=== PATIENT | male | born 1950 | race Caucasian/White ===

== ENCOUNTER → 2016-11-25 | Outpatient (CLI) | payer OTHER ==
[2015-02-17 15:00] VITALS: BP 125/75
--- NOTE | 2016-11-25 10:34 | RAD ---
APPROVED REPORT Patient Location: OUT-PATIENT Laterality:Bilateral Indications CVA/TIA: carotid occlusion Doppler Spectral Velocity Analysis Right Left pCCA 79/13 cm/spCCA 63/10 cm/s mCCA 73/18 cm/smCCA 52/9 cm/s dCCA 76/19 cm/sdCCA 56/11 cm/s Bulb 61/19 cm/sBulb 58/12 cm/s ECA 108/ cm/sECA 66/ cm/s pICA 64/13 cm/spICA John 57/17 cm/smICA dICA 60/23 cm/sdICA Vert. 52/ cm/sVert. 36/ cm/s Subcl. 95/ cm/sSubcl. 119/ cm/s ICA/CCA 0.81ICA/CCA Findings Bilateral avila scale images of the common carotid, external and internal carotids was obtained. There is mild diffuse intimal hyperplasia the bilateral common carotid vessels with mild plaque at the bul bs. The left internal caortid artery is occlued at its origin. The left vertebral artery appears to b e occluded or severely diseased based on spectral waveforms. No other significant disease is identifi ed bilaterally. Critical Notification Critical Value: No <Conclusion> 1. Occluded left internal carotid artery, and likely vertebral artery. 2. Antegrade right vertebral velocity.
== END | disposition home or self-care (01) ==
LOC: US 09:15
PROVIDERS: ATTEND Internal Medicine Cardiovascular Disease
DX: I63.9 Cerebral infarction, unspecified (principal); I65.22 Occlusion and stenosis of left carotid artery
CPT/HCPCS: 93880

== ENCOUNTER → 2017-06-03 | Outpatient (CLI) | payer OTHER ==
[2015-02-17 15:00] VITALS: BP 125/75
--- NOTE | 2017-06-03 16:01 | EKG ---
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
== END | disposition home or self-care (01) ==
LOC: EKG 15:40
PROVIDERS: ATTEND Psychiatry & Neurology Neurology
DX: I49.49 Other premature depolarization (principal)
CPT/HCPCS: 93005

== ENCOUNTER → 2017-12-18 | Outpatient (CLI) | payer OTHER ==
[~2017-12-18] MED LIST: REGADENOSON 0.4 MG/5 ML DISP.SYRIN. IV
[2017-12-18] MEDS: REGADENOSON 0.4 MG/5 ML DISP.SYRIN. IV (09:50)
== END | disposition home or self-care (01) ==
LOC: NM 07:57
DX: I48.91 Unspecified atrial fibrillation (principal); I10 Essential (primary) hypertension; Z79.01 Long term (current) use of anticoagulants; Z87.891 Personal history of nicotine dependence
CPT/HCPCS: 78452; 93017; 96374; 96375; 96376; A9500; J2785

== ENCOUNTER → 2018-05-05 | Outpatient (CLI) | payer OTHER ==
[2018-05-05] MEDS: IOHEXOL 300 MG/ML 100ML VIAL. IV (09:43)
== END | disposition home or self-care (01) ==
LOC: KCIC CT 08:46
DX: N40.1 Benign prostatic hyperplasia with lower urinary tract symptoms (principal); R31.29 Other microscopic hematuria; I10 Essential (primary) hypertension; E78.5 Hyperlipidemia, unspecified; Z87.891 Personal history of nicotine dependence
CPT/HCPCS: 74178; Q9967

== ENCOUNTER → 2018-10-21 | Outpatient (CLI) | payer OTHER ==
[2015-02-17 15:00] VITALS: BP 125/75
--- NOTE | 2018-10-21 16:09 | RAD ---
Carotid ultrasound, 10/21/2018: HISTORY: Carotid artery disease Duplex evaluation of the carotid arteries and neck was performed including grayscale, color-flow and spectral Doppler analysis. On the right, there is moderate plaquing at the carotid bifurcation. The plaques are partially calcified. The peak systolic velocity in the right internal carotid artery is 86 cm per sec with an end-diastolic velocity of 23 cm/s and an internal carotid to common carotid artery ratio of 1.1. These Doppler findings suggest luminal narrowing in the 0-50 percent diameter range. On the left, there is chronic occlusion of the internal carotid artery at the bifurcation. This was also evident on the previous study of 11/25/2016. The external carotid artery is widely patent. Both vertebral arteries in the neck are well visualized on today's study and are patent with normal antegrade flow. IMPRESSION: 1. 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 2. Moderate atherosclerotic plaquing at the right carotid bifurcation with underlying narrowing of the proximal internal carotid artery in the 0-50 percent diameter range. Note: Stenosis calculations for CT, MRA and conventional angiography are based upon determination of the distal ICA diameter in accordance with the NASCET methodology. Stenosis calculations for Doppler studies are derived from validated velocity criteria which are known to correlate with NASCET methodology of determining stenosis. Electronically signed by: Lico Nino MD (10/21/2018 4:04 PM) [facility]
== END | disposition home or self-care (01) ==
LOC: US 12:15
DX: I65.23 Occlusion and stenosis of bilateral carotid arteries (principal)
CPT/HCPCS: 93880

== ENCOUNTER 2021-03-25 20:32 | Emergency (ER) | payer MEDICARE, OTHER ==
[~2021-03-25] VITALS: Ht 172.7 cm; Wt 81.8 kg
[2021-03-25 22:07] LABS: BASO # 0.1 x10^3/uL (0.0-0.2); BASO % 1 % (0-3); EOS # 0.2 x10^3/uL (0.0-0.7); EOS % 2 % (0-3); HEMATOCRIT 38.7 % (39.0-53.0); HEMOGLOBIN 13.4 g/dL (13.0-17.5); LYMPH # 1.2 x10^3/uL (1.0-4.8); LYMPH % 13 % (24-48); MEAN CORPUSCULAR HEMOGLOBIN 29 pg (25-35); MEAN CORPUSCULAR HGB CONC 35 g/dL (31-37); MEAN CORPUSCULAR VOLUME 85 fL (79-100); MONO # 0.9 x10^3/uL (0.0-1.1); MONO % 10 % (0-9); NEUT # 7.2 x10^3/uL (1.8-7.7); NEUT % 75 % (31-73); PLATELET COUNT 285 x10^3/uL (140-400); RED BLOOD COUNT 4.54 x10^6/uL (4.30-5.70); RED CELL DISTRIBUTION WIDTH 14.4 % (11.5-14.5); WHITE BLOOD COUNT 9.6 x10^3/uL (4.0-11.0)
[2021-03-25 22:08] LABS: BILIRUBIN,URINE NEGATIVE (NEG); CLARITY,URINE CLEAR; COLOR,URINE YELLOW; NITRITE,URINE NEGATIVE (NEG); PH,URINE 5.5 (<5.0-8.0); PROTEIN,URINE NEGATIVE (NEG-TRACE); UROBILINOGEN,URINE 0.2 mg/dL (0.2 mg/dL)
--- NOTE | 2021-03-25 22:11 | PHYS DOC ---
Past Medical History Past Medical History: No Pertinent History Past Surgical History: No Surgical History Smoking Status: Unknown if ever smoked Alcohol Use: None Drug Use: None General Adult EDM: Chief Complaint: DIZZY/LIGHT HEADED HPI: HPI: Patient is a 70 year old male who presents with this morning 9:00 begin feeling lightheaded. It is worse with position change. He states that he does not have dizziness. He denies abdominal pain, chest pain, shortness of breath, syncope, numbness or tingling, focal weakness, nausea, vomiting, diarrhea, back pain, fal l, headache, vision change. He states his history consist of hypertension, A. fib which she is on Eliquis, mini strokes, left carotid occlusion. Review of Systems: Review of Systems: Constitutional: Denies fever or chills. [] Eyes: Denies change in visual acuity. [] HENT: Denies nasal congestion or sore throat. [] Respiratory: Denies cough or shortness of breath. [] Cardiovascular: Denies chest pain or edema. [] GI: Denies abdominal pain, nausea, vomiting, bloody stools or diarrhea. [] : Denies dysuria. [] Musculoskeletal: Denies back pain or joint pain. [] Integument: Denies rash. [] Neurologic: Denies headache, focal weakness or sensory changes. + Lightheaded [] Endocrine: Denies polyuria or polydipsia. [] Lymphatic: Denies swollen glands. [] Psychiatric: Denies depression or anxiety. [] Heart Score: C/O Chest Pain: No HEART Score for Chest Pain: HEART Score for Chest Pain Response (Comments) Value History Slighlty/Non-Suspicious 0 ECG Normal 0 Age > 65 2 Risk Factors 1 or 2 Risk Factors 1 Troponin < Normal Limit 0 Total 3 Risk Factors: Risk Factors: DM, Current or recent (<one month) smoker, HTN, HLP, family history of CAD, obesity. Risk Scores: Score 0 - 3: 2.5% MACE over next 6 weeks - Discharge Home Score 4 - 6: 20.3% MACE over next 6 weeks - Admit for Clinical Observation Score 7 - 10: 72.7% MACE over next 6 weeks - Early Invasive Strategies Allergies: Allergies: Allergies Coded Allergies Type Severity Reaction Last Updated Verified No Known Drug Allergies 02/14/15 No Physical Exam: PE: Constitutional: Well developed, well nourished, no acute distress, non-toxic appearance. [] HENT: Normocephalic, atraumatic, bilateral external ears normal, oropharynx moist, no oral exudates, nose normal. [] Eyes: PERRLA, EOMI, conjunctiva normal, no discharge. [] Neck: Normal range of motion, no tenderness, supple, no stridor. [] Cardiovascular:Heart rate regular rhythm, no murmur [] Lungs & Thorax: Bilateral breath sounds clear to auscultation [] Abdomen: Bowel sounds normal, soft, no tenderness, no masses, no pulsatile masses. [] Skin: Warm, dry, no erythema, no rash. [] Back: No tenderness, no CVA tenderness. [] Extremities: No tenderness, no cyanosis, no clubbing, ROM intact, no edema. [] Neurologic: Alert and oriented X 3, normal motor function, normal sensory function, no focal deficits noted. [] Psychologic: Affect normal, judgement normal, mood normal. [] Normal physical exam Current Patient Data: Vital Signs: Vital Signs Date Time Temp Pulse Resp B/P (MAP) Pulse Ox O2 Delivery O2 Flow Rate FiO2 03/25/21 20:45 97.7 88 16 160/65 (96) 94 Room Air 97.7 EKG: EK and read by Dr. Garvin is sinus rhythm and no STEMI Radiology/Procedures: Radiology/Procedures: [] Impression: [facility] [address] [place], [place] [id number] IMAGING REPORT Signed PATIENT: ARCELIA RUBIN ACCOUNT: [id number] : 1950 LOCATION: ER AGE: 70 SEX: M EXAM STATUS: REG ER ORD. PHYSICIAN: NABOR CLAYTON APRN REASON: dizziness PROCEDURE: CT HEAD WO CONTRAST Exam Date: 03/25/2021 9:[address] HEAD/BRAIN WO Indication: Reason: dizziness / Spl. Instructions: / History: . TECHNIQUE: Head CT was performed without intravenous contrast. One or more of the following dose reduction techniques were utilized: *Automated exposure control (AEC) *Adjustment of mA and/or kV according to patient size *Use of iterative reconstruction technique *CT scan done according to ALARA, or ALARA/IMAGE GENTLY FINDINGS: The ventricles and sulci are prominent consistent with cerebral volume loss. Patchy ill-defined low attenuation areas in the subcortical and periventricular white matter bilaterally are consistent with microvascular disease. There is no evidence of acute intracranial hemorrhage, extra-axial collection, mass effect, midline shift, or acute territorial infarct. No lesion of the skull base or the calvarium is seen. The visualized paranasal sinuses, mastoid air cells and orbits are normal in appearance. IMPRESSION: No evidence for acute intracranial abnormality. Volume loss and microvascular disease. Electronically signed by: Angela Kenney MD (03/25/2021 10:12 PM) [facility] DICTATED and SIGNED BY: ANGELA KENNEY MD DATE: 03/25/21 [id number] 0 Course & Med Decision Making: Course & Med Decision Making Pertinent Labs and Imaging studies reviewed. (See chart for details) See HPI. Alert and oriented x4. Ambulatory with a steady gait. Skin pink warm and dry. Speaks in full clear sentences. NIH is 0. EKG is a sinus rhythm with no STEMI. Orthostatics include layin/81, 70; sitting 165/72, 89; standing 179/99, 76. Patient is given a liter of normal saline. Qtjwac-frik-kjnfti intact. No extremity edema. CT shows no acute findings. Patient remained stable. He received a liter of fluid. Chest x-ray read by Dr. Garvin is no acute findings. I have given my advice to the patient as he should stay for admission for further work-up and evaluation and observation. Patient and are adamant that they leave and go home. They state their understanding upon me educating them about worsening of condition up to and disability. They state their understanding of when they should come back to the emergency room. They also state their understanding that they must follow-up with primary care tomorrow. I have gone over this patient with Dr. Garvin who states to not to sign them out AMA but make sure they understand the risk factors. NIH remains at a 0. [] Dragon Disclaimer: Dragon Disclaimer: This electronic medical record was generated, in whole or in part, using a voice recognition dictation system. NIHSS Stroke Scale NIH Stroke Scale: NIH Stroke Scale Response (Comments) Value Level of Consciousness: 0 Alert/Responsive 0 LOC Questions: 0 Answers both correctly 0 LOC Commands: 0 Performs both tasks 0 Best Gaze: 0 Normal 0 Visual: 0 No visual loss 0 Facial Palsy: 0 Normal, symmetrical 0 Motor - Left Arm 0 No drift 0 Motor - Right Arm 0 No drift 0 Motor - Left Leg 0 No drift 0 Motor: Right Leg 0 No drift 0 Limb Ataxia: 0 Absent 0 Sensory: 0 No loss 0 Best Language: 0 Normal 0 Dysathria: 0 Normal 0 Extinction and Inattention: 0 Normal 0 Total 0 Departure Departure Impression: Primary Impression: Orthostatic lightheadedness Disposition: 01 HOME / SELF CARE / HOMELESS Condition: STABLE Referrals: YULIYA OSBORN MD (PCP) Patient Instructions: Orthostatic Hypotension Additional Instructions: Follow-up with your primary care provider in the morning. If your symptoms worsen call 911 or come back to the emergency room. Drink plenty of fluids. NABOR CLAYTON APRN Mar 25, 2021 22:11
[2021-03-25 22:14] LABS: AMPHETAMINE/METHAMPHETAMINE NEG (NEG); BARBITURATES NEG (NEG); BENZODIAZEPINES NEG (NEG); CANNABINOIDS NEG (NEG); COCAINE NEG (NEG); METHADONE NEG (NEG); OPIATES NEG (NEG); PHENCYCLIDINE NEG (NEG)
[2021-03-25 22:15] LABS: HYALINE CASTS, URINE FEW /HPF
[2021-03-25] MEDS ORDERED: IV NORMAL SALINE 1000ML BAG 1,000 ML IV ONE (22:15)
--- NOTE | 2021-03-25 22:15 | RAD ---
Exam Date: 03/25/2021 9:[address] HEAD/BRAIN WO Indication: Reason: dizziness / Spl. Instructions: / History: . TECHNIQUE: Head CT was performed without intravenous contrast. One or more of the following dose re duction techniques were utilized: *Automated exposure control (AEC) *Adjustment of mA and/or kV according to patient size *Use of iterative reconstruction technique *CT scan done according to ALARA, or ALARA/IMAGE GENTLY FINDINGS: The ventricles and sulci are prominent consistent with cerebral volume loss. Patchy ill-defined low attenuation areas in the subcortical and periventricular white matter bilaterally are consistent with microvascular disease. There is no evidence of acute intracranial hemorrhage, extra-axial collecti on, mass effect, midline shift, or acute territorial infarct. No lesion of the skull base or the calv arium is seen. The visualized paranasal sinuses, mastoid air cells and orbits are normal in appearanc e. IMPRESSION: No evidence for acute intracranial abnormality. Volume loss and microvascular disease. Electronically signed by: Korey Kenney MD (03/25/2021 10:12 PM) [facility]
[2021-03-25 22:16] LABS: BACTERIA,URINE 0 /HPF (0-FEW)
[2021-03-25 22:19] LABS: CREATININE 1.4 mg/dL (0.7-1.3); POTASSIUM 3.6 mmol/L (3.5-5.1)
[2021-03-25 22:25] LABS: ALBUMIN 3.9 g/dL (3.4-5.0); ALBUMIN/GLOBULIN RATIO 1.1 (1.0-1.7); TOTAL BILIRUBIN 0.3 mg/dL (0.2-1.0); TOTAL PROTEIN 7.5 g/dL (6.4-8.2)
[2021-03-25 23:06] VITALS: BP 160/70
--- NOTE | 2021-03-26 02:15 | RAD ---
XR CHEST 1V INDICATION: Reason: dizziness / Spl. Instructions: / History: . COMPARISON STUDY: None. FINDINGS: Lungs: Normal lung volume. No pulmonary mass or consolidation. The tracheobronchial tree and hilar st ructures are normal. Pleura: No pleural effusion or pneumothorax. Heart and Mediastinum: The cardiomediastinal silhouette is normal. Atherosclerosis of the thoracic ao rta. IMPRESSION: No acute cardiopulmonary process. Electronically signed by: Andrew Pelletier MD (03/26/2021 2:13 AM) [facility]
--- NOTE | 2021-03-26 06:19 | EKG ---
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
== END 2021-03-26 00:03 | disposition home or self-care (01) ==
LOC: ER 20:32
DX: R42 Dizziness and giddiness (principal); I10 Essential (primary) hypertension; I48.91 Unspecified atrial fibrillation
CPT/HCPCS: 36415; 70450; 71045; 80053; 80307; 81001; 84484; 85025; 87086; 93005; 96360; 99285; G0480; J7030

== ENCOUNTER 2021-06-06 09:17 | Day surgery (SDC) | payer MEDICARE ==
[~2021-06-06] VITALS: Ht 172.7 cm; Wt 84.5 kg
[~2021-06-06 09:17] MED LIST changes: +APIX5TAB PO; +ASPI-630 PO; +ATOR10TA60 PO; +BENZOCAINE ONE 20% MUCOSAL SPRAY. MM; +DILT180C29 PO; +FLEC100T PO; +HYDROmorphone 2 MG/ML VIAL IVP PRN; +IV RINGERS,LACTATED 1000ML 1,000 ML IV SCH; +LIDOCAINE 2% JELLY 6ML IN APPLICATOR. MM ONE; +LIDOCAINE 2% VISCOUS 15 ML SOLUTION. SWSW ONE; +LOSA-73 PO; +MORPHINE SULFATE 2 MG/ML INJ. IVP PRN; +PROCHLORPERAZINE 10 MG/2 ML VIAL. IVP PRN; -REGADENOSON 0.4 MG/5 ML DISP.SYRIN. IV; +TAMS0.4C97 PO; +fentaNYL PF VIAL 100 MCG/2 ML VIAL IVP PRN
[2021-06-06 09:50] VITALS: BP 161/71
--- NOTE | 2021-06-06 10:00 | EKG ---
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
[2021-06-06 10:14] LABS: HEMATOCRIT 39.1 % (39.0-53.0); HEMOGLOBIN 13.5 g/dL (13.0-17.5); RED BLOOD COUNT 4.55 x10^6/uL (4.30-5.70); RED CELL DISTRIBUTION WIDTH 14.2 % (11.5-14.5); WHITE BLOOD COUNT 7.7 x10^3/uL (4.0-11.0)
[2021-06-06 10:25] LABS: CALCIUM 9.3 mg/dL (8.5-10.1); CREATININE 1.4 mg/dL (0.7-1.3); GFR 49.8; POTASSIUM 3.7 mmol/L (3.5-5.1)
[2021-06-06] MEDS ORDERED: LIDOCAINE 2% PF 5 ML VIAL. ONE (10:27)
[2021-06-06] MEDS ORDERED: PROPOFOL 10 MG/ML (20ML) VIAL. IV ONE (10:27)
[2021-06-06] MEDS ORDERED: LIDOCAINE 2% TOPICAL JELLY 30GM TUBE. TP ONE (10:58)
[2021-06-06 11:45] VITALS: BP 120/48
--- NOTE | 2021-06-06 15:24 | CARD ---
MR#: [id number] Date of Study: 06/06/2021 Ordering Physician: RAGHU CALIX, Referring Physician: RAGHU CALIX, Tech: Kristina Camp [facility] APPROVED REPORT EXAM: Two-dimensional and M-mode echocardiogram with Doppler and color Doppler. INDICATION Atrial Fibrillation Pre Ablation RISK FACTORS Hypertension Hyperlipidemia Reason For Test : Rule out Intracardiac Thrombus. PROCEDURE After obtaining informed consent, patient underwent transesophageal echo in the PACU. Type of Sedation : General Anesthesia Sedation was administered by Jo Hernandez. Sedation was achieved with Propofol 220mg intravenously. Sedation was achieved with Lidocaine 100mg intravenously. Transesophageal probe was inserted and advanced into esophagus by Raghu Calix MD. The JUANA was performed without complications. Throughout the procedure, the blood pressure, pulse oximetry, cardiac rhythm, and rate were monitored . The patient tolerated the procedure without adverse effects. Recovery from general anesthesia was une ventful and vital signs were stable. LEFT VENTRICLE The left ventricle is normal size. There is mild concentric left ventricular hypertrophy. The left ve ntricular systolic function is normal and the ejection fraction is within normal range. The Ejection Fraction is 50-55%. There is normal LV segmental wall motion. RIGHT VENTRICLE The right ventricle is normal size. There is normal right ventricular wall thickness. The right ventr icular systolic function is normal. ATRIA The left atrium size is normal. The right atrium size is normal. The interatrial septum is intact wit h no evidence for an atrial septal defect or patent foramen ovale as noted on 2-D or Doppler imaging. There is no thrombus noted in the left atrial appendage. AORTIC VALVE The aortic valve is normal in structure and function. Doppler and Color Flow revealed no significant aortic regurgitation. There is no significant aortic valvular stenosis. There is no aortic valvular v egetation. MITRAL VALVE The mitral valve is normal in structure and function. There is no mitral valve stenosis. Doppler and Color Flow revealed trace mitral valve regurgitation noted. TRICUSPID VALVE The tricuspid valve is normal in structure and function. Doppler and Color Flow revealed trace tricus pid regurgitation. There is no tricuspid valve stenosis. PULMONIC VALVE The pulmonary valve is normal in structure and function. Doppler and Color Flow revealed trace pulmon ic valvular regurgitation. GREAT VESSELS The aortic root is normal in size. Critical Notification Critical Value: No <Conclusion> The left ventricle is normal size. The left ventricular systolic function is normal and the ejection fraction is within normal range. The Ejection Fraction is 50-55%. There is mild concentric left ventricular hypertrophy. There is no thrombus noted in the left atrial appendage. Doppler and Color Flow revealed no significant aortic regurgitation. There is no significant aortic valvular stenosis. Doppler and Color Flow revealed trace mitral valve regurgitation noted. Doppler and Color Flow revealed trace tricuspid regurgitation. Signed by : Raghu Calix MD Electronically Approved : 06/06/2021 15:23:32
--- NOTE | 2021-06-11 10:24 | PDOC1 ---
History and Physical Visit Information Date of Admission: Outpatient JUANA on 06/06/21 Source: Chart review, Patient History of Present Illness History of Present Illness The patient is a 70-year-old male with a history of paroxysmal atrial fibrillation, CVA, hypertension and an occluded left carotid artery. The patient has been followed for paroxysmal atrial fibrillation and our last office visit on 2020 the patient was continued on his present medications and referred to the general laborer for evaluation of his paroxysmal atrial fibrillation. He was seen by the electrophysiology service and after discussion with the patient they are proceeding with a probable ablation in the next several weeks. Secondary to this ablation the patient required a transesophageal echocardiogram. Today he is feeling well. He denies chest pain, shortness of breath, dizziness or lightheadedness. Current Problem List Problems: (1) Paroxysmal atrial fibrillation Past Medical History Cardiovascular: AFIB, HTN, Hyperlipidemia, Other (Carotid arterial disease) CENTRAL NERVOUS SYSTEM: TIA Past Surgical History Past Surgical History: No pertinent history Current Medications Current Medications As outlined on preop sheet. Allergies Allergies Allergies Coded Allergies Type Severity Reaction Last Updated Verified No Known Drug Allergies 06/06/21 No Social History Smoke: Quit ALCOHOL: none Family History Family History: Cancer Physical Exam General: Alert HEENT: Atraumatic Lungs: Clear to auscultation Heart: Regular rate CHEST: Clear to auscultation Vitals VITALS Blood pressure 134/80 pulse of 80. Respirate of 16 VTE Prophylaxis Ordered VTE Prophylaxis Devices: No VTE Pharmacological Prophylaxi: No Assessment/Plan Assessment/Plan 1. History of paroxysmal atrial fibrillation. Patient has been seen by the EP service. He is being scheduled for ablation. He requires a JUANA preoperatively. The procedure as well as risks and benefits were discussed with the patient. 2. Hypertension. Controlled. Continue present medications. 3. Hyperlipidemia. Continue present treatments. 4. History of a CVA. Neurologically stable. Occluded carotid artery as above. Justicifation of Admission Dx: Justifications for Admission: Justification of Admission Dx: Yes Comments: Outpatient JUANA. Upcoming ablation for paroxysmal atrial fibrillation. RAGHU TRACY MD Jun 11, 2021 10:24
== END 2021-06-06 12:08 | disposition home or self-care (01) ==
LOC: SURG 09:17
PROVIDERS: ATTEND Internal Medicine Cardiovascular Disease
DX: I48.91 Unspecified atrial fibrillation (principal); I11.9 Hypertensive heart disease without heart failure; E78.00 Pure hypercholesterolemia, unspecified; Z86.73 Personal history of transient ischemic attack (TIA), and cerebral infarction without residual deficits; Z79.899 Other long term (current) drug therapy; Z98.890 Other specified postprocedural states; Z79.82 Long term (current) use of aspirin; Z87.891 Personal history of nicotine dependence
CPT/HCPCS: 36415; 80048; 85027; 93005; 93312; 93325; J2704